=== PATIENT | female | born 1945 | race Caucasian/White ===

== ENCOUNTER 2023-03-21 11:53 | Emergency (ER) | payer OTHER, SELFPAY ==
[2023-03-21 12:02] VITALS: BP 125/57; PULSE 81; RESP 14; TEMP 37.2; O2SAT 98
--- NOTE | 2023-03-21 12:16 | ED.URI ---
HPI - URI/Sore Throat General Chief Complaint: Upper Respiratory Infection Stated Complaint: Sore Throat Time Seen by Provider: 03/21/23 12:17 Source: patient, RN notes reviewed and old records reviewed Mode of arrival: ambulatory Limitations: no limitations History of Present Illness HPI Narrative: 77-year-old female presents with postnasal drip, coughing phlegm and a sore throat since mulching leaves yesterday. Denies any fevers. No chest pain. No coughing. Reports that she does have a runny nose Has a history of allergies. Onset (ago): day(s) (1) Related Data Home Medications Medication Instructions Recorded Confirmed alendronate 70 mg tablet 70 mg PO DIRECTED 03/21/23 03/21/23 zolpidem 5 mg tablet 5 mg PO HS PRN Insomnia 03/21/23 03/21/23 Allergies Allergy/AdvReac Type Severity Reaction Status Date / Time levofloxacin Allergy Mild Other Verified 03/21/23 12:24 Sulfa (Sulfonamide Allergy Mild Other Verified 03/21/23 12:24 Antibiotics) AMOXICILLIN TRIHYDRATE Allergy Unknown DIARRHEA Uncoded 03/21/23 12:24 MONTELUKAST SODIUM Allergy Unknown SHAKES Uncoded 03/21/23 12:24 Review of Systems Review of Systems: All systems reviewed & are unremarkable except as noted in HPI and below Constitutional: Constitutional: Reports no additional constitutional complaints Eyes: Eyes: Reports no additional eye complaints ENT: Reports as per HPI and Reports sore throat Cardiovascular: Cardiovascular: Reports no additional cardiovascular complaints, Denies chest pain and Denies dyspnea Respiratory: Respiratory: Reports no additional respiratory complaints, Denies chest congestion, Denies cough and Denies dyspnea Gastrointestinal: Gastrointestinal: Reports no additional gastrointestinal complaints, Denies abdominal pain, Denies nausea and Denies vomiting Musculoskeletal: Musculoskeletal: Reports no additional musculoskeletal complaints Integumentary/Breasts: Skin/Breast: Reports system reviewed and no additional complaints, except as docu Neurologic: Reports system reviewed and no additional complaints, except as documented Psychiatric: Psychiatric: Reports no additional psychiatric complaints Allergic/Immunologic: Allergic/Immunologic: Reports no additional allergic/immunologic complaints [facility] Past Medical History Medical History (Updated 03/21/23 @ 19:05 by Jocelin Waters APRN) Osteoporosis Comments At the time of my signature, I reviewed and agree with the nursing past medical, surgical, social, and family history. There is no relevant family history pertinent to the patient complaint. Exam Const: General: cooperative, healthy appearing, comfortable, no acute distress, well developed, alert and well nourished Nutritional Appearance: well nourished Orientation/consciousness: patient oriented x3 Limitations: no limitations HENMT: Head: normal to inspection Ears: hearing grossly normal bilaterally, external ears normal, TM's normal bilaterally, EAC's normal, mastoids normal and no periauricular adenopathy Face/Nose/Sinus: Normal external nose present, Normal nares present, Normal nasal mucous membranes and turbinates present, normal facial exam and face symmetric Face and sinus: normal facial exam and face symmetric Mouth: Yes Normal oral and palatal mucosa present, Yes lip normal and Yes moist mucous membranes Throat: posterior oropharynx normal, tonsils normal, uvula midline and postnasal drainage Eyes: General: appearance normal, both eyes and all related structures Alignment and Position: alignment normal Periorbital: periorbital findings normal Pupils: Equal, round and reactive pupils present EOM: EOMs intact bilaterally Neck: Neck: normal visual inspection, full ROM, no lymphadenopathy and no meningeal signs Chest: Chest palpation & inspection: normal inspection of the chest Resp: Effort & Inspection: normal respiratory effort and able to speak in complete sentences Auscultation: clear to aus
== END 2023-03-21 12:51 | disposition home or self-care (01) ==
PROVIDERS: Emergency Provider Nurse Practitioner; PCP Family Medicine
DX: J02.9 Acute pharyngitis, unspecified (principal); R09.82 Postnasal drip; M81.0 Age-related osteoporosis without current pathological fracture
CPT/HCPCS: 87081; 87880; 99213; G0463

== ENCOUNTER 2023-08-11 12:06 | Emergency (ER) | payer OTHER, SELFPAY ==
[2023-08-11 12:28] VITALS: BP 142/60; PULSE 89; RESP 16; TEMP 37.2; O2SAT 98
--- NOTE | 2023-08-11 12:36 | ED.EAR ---
HPI - Ear Problem General Chief complaint: Ear Stated complaint: right ear decreased hearing Time Seen by Provider: 08/11/23 12:36 Source: patient Mode of arrival: ambulatory Limitations: no limitations History of Present Illness HPI Narrative: 77-year-old female presents with decreased hearing to bilateral ears, worse to right ear. No pain. All systems reviewed and negative except as noted above. Related Data Home Medications Medication Instructions Recorded Confirmed alendronate 70 mg tablet 70 mg PO DIRECTED 03/21/23 08/11/23 zolpidem 5 mg tablet 5 mg PO HS PRN Insomnia 03/21/23 08/11/23 Allergies Allergy/AdvReac Type Severity Reaction Status Date / Time levofloxacin Allergy Mild Other Verified 08/11/23 12:19 Sulfa (Sulfonamide Allergy Mild Other Verified 08/11/23 12:19 Antibiotics) AMOXICILLIN TRIHYDRATE Allergy Mild DIARRHEA Uncoded 08/11/23 12:19 MONTELUKAST SODIUM Allergy Mild SHAKES Uncoded 08/11/23 12:19 Review of Systems Review of Systems: CONSTITUTIONAL: Denies fever, chills, or sweats. EYES: Denies visual changes, redness, or discharge. ENT: Denies rhinorrhea, congestion, sore throat . reports decreased hearing, worse to right ear. CARDIOVASCULAR: Denies chest pain, palpitations, or edema. RESPIRATORY: Denies cough or dyspnea. GASTROINTESTINAL: Denies abdominal pain, nausea, vomiting, or diarrhea. GENITOURINARY: Denies dysuria or hematuria. SKIN: Denies rash or itching. MUSCULOSKELETAL: Denies back pain, joint pain, or myalgia. NEUROLOGIC: Denies headache, numbness, or weakness. PSYCHIATRIC: Denies anxiety or depression. All other systems reviewed are negative, except as documented in HPI. [facility] Past Medical History Medical History (Updated 08/11/23 @ 12:45 by Kimberly Simental NP) Osteoporosis Comments At time of signature, agree with nursing past medical, surgical, social and family history. There is no relevant family history pertinent to the presenting complaint. Exam Narrative: GENERAL: This is a well-nourished, well-developed patient, in no apparent distress. HEAD: normocephalic, atraumatic. EYES: PERRL. Sclera clear/white. Vision is grossly intact. EARS: External ears normal, Cerumen to bilateral ear canals, after irrigation TMs normal without perforation. Hearing grossly intact. NOSE: External nose normal NECK: Neck supple, non-tender without lymphadenopathy, masses or thyromegaly. CARDIOVASCULAR: Regular rate and rhythm without murmurs, gallops, or rubs. RESPIRATORY: Clear to auscultation. Breath sounds equal bilaterally. No wheezes, rales, or rhonchi. SKIN: warm, Dry, intact with no suspicious lesions or rash, good texture and turgor. NEURO: awake, alert, and oriented to person, place and time. There were no obvious focal neurologic abnormalities. EXTREMITIES: No joint tenderness, effusion, or edema noted. Course Course Level of Care: Express Care Visit Vital Signs Vital signs: Vital Signs Temperature 37.2 C 08/11/23 12:28 Pulse Rate 89 08/11/23 12:28 Respiratory Rate 16 08/11/23 12:28 Blood Pressure 142/60 H 08/11/23 12:28 Pulse Oximetry 98 08/11/23 12:28 Oxygen Delivery Room Air 08/11/23 12:28 Temperature 37.2 C 08/11/23 12:28 Pulse Rate 89 08/11/23 12:28 Respiratory Rate 16 08/11/23 12:28 Blood Pressure 142/60 H 08/11/23 12:28 Pulse Oximetry 98 08/11/23 12:28 Oxygen Delivery Room Air 08/11/23 12:28 reviewed Procedures Ear Wax Removal Both Ears: Ear Wax Removal Date: 08/11/23 Ear Wax Removal Time: 12:30 Cerumenolytic Used: other ( warm water) Results: Re-examined: cerumen removed completely TM Examination: TM(s) intact, normal appearance Ear Canal Exam: atraumatic Patient Tolerated Procedure: well Complications: no problems Technique: ear canal irrigated Medical Decision Making MDM Narrative Medical decision making narrative:
== END 2023-08-11 12:47 | disposition home or self-care (01) ==
PROVIDERS: Emergency Provider Nurse Practitioner Family; PCP Family Medicine
DX: H61.23 Impacted cerumen, bilateral (principal); M81.0 Age-related osteoporosis without current pathological fracture
CPT/HCPCS: 69209; 99212; G0463

== ENCOUNTER 2023-11-01 15:56 | Emergency (ER) | payer OTHER, SELFPAY ==
[2023-11-01 16:11] VITALS: BP 134/50; PULSE 64; RESP 16; TEMP 37.1; O2SAT 97
--- NOTE | 2023-11-01 16:30 | ED.FEMALEGU ---
HPI - Female Genitourinary General Chief complaint: Urogenital-Female Stated complaint: Urinary Problems Time Seen by Provider: 11/01/23 16:21 Source: patient and RN notes reviewed Mode of arrival: ambulatory Limitations: no limitations History of Present Illness HPI Narrative: Patient presents today with a 2 day history of urgency, frequency, dysuria, and dribbling of urine. She has been taking cranberry pills for symptoms. Denies abdominal pain, hematuria. States that due to drug allergies, she is only able to take Cipro for UTI. Reports allergies to Levaquin, Amoxicillin, and Sulfa. Patient also reports possible shingles to her low back that were noted a few days ago. She has been taking Benadryl for this which has been helping. States she cannot receive shingles vaccine due to allergy. Related Data Home Medications Medication Instructions Recorded Confirmed alendronate 70 mg tablet 70 mg PO DIRECTED 03/21/23 11/01/23 lidocaine 5 % topical patch 1 patch topical BID 11/01/23 11/01/23 Allergies Allergy/AdvReac Type Severity Reaction Status Date / Time levofloxacin Allergy Mild Hives Verified 11/01/23 16:19 Sulfa (Sulfonamide Allergy Mild Hives Verified 11/01/23 16:19 Antibiotics) AMOXICILLIN TRIHYDRATE Allergy Mild Hives Uncoded 11/01/23 16:19 MONTELUKAST SODIUM Allergy Mild SHAKES Uncoded 11/01/23 16:19 Review of Systems Review of Systems: CONSTITUTIONAL: Denies body aches, fever, chills, or sweats. EYES: Denies visual changes, redness, or discharge. ENT: Denies rhinorrhea, congestion, sore throat, or otalgia. CARDIOVASCULAR: Denies chest pain, palpitations, or edema. RESPIRATORY: Denies cough or dyspnea. GASTROINTESTINAL: Denies abdominal pain, nausea, vomiting, or diarrhea. GENITOURINARY: + urgency, frequency, dysuria SKIN: + rash MUSCULOSKELETAL: Denies back pain, joint pain, or myalgia. NEUROLOGIC: Denies headache, numbness, tingling, or weakness. PSYCH: Denies depression or anxiety. [facility] Past Medical History Medical History Osteoporosis Comments At time of signature, I have reviewed and agree with nursing past medical, surgical, social and family history unless otherwise noted. Please see nursing chart for further information. There is no relevant family history pertinent to the presenting complaint Exam Narrative: GENERAL: Well-appearing, well-nourished, and in no acute distress. HEAD: Normocephalic, atraumatic. EYES: EOMI. No redness or drainage. Conjunctivae normal. ENT: Mucous membranes pink and moist. NECK: Normal AROM. CHEST: No respiratory distress. Clear to auscultation. HEART: Regular rate and rhythm. No murmur appreciated. Normal peripheral pulses. ABDOMEN: Soft, nontender, nondistended, normal active bowel sounds. EXTREMITIES: Normal range of motion. No edema. SKIN: Warm, dry. Capillary refill normal. Normal skin turgor. Cluster of tiny vesicles on an erythematous base to the left low back almost at midline. NEURO: No focal deficits. Alert and oriented x3. Gait steady. PSYCH: Normal affect. No signs of depression or anxiety. Course Course Level of Care: Express Care Visit Vital Signs Vital signs: Vital Signs Temperature 98.8 F 11/01/23 16:11 Pulse Rate 64 11/01/23 16:11 Respiratory Rate 16 11/01/23 16:11 Blood Pressure 134/50 L 11/01/23 16:11 Pulse Oximetry 97 11/01/23 16:11 Oxygen Delivery Room Air 11/01/23 16:11 Temperature 98.8 F 11/01/23 16:11 Pulse Rate 64 11/01/23 16:11 Respiratory Rate 16 11/01/23 16:11 Blood Pressure 134/50 L 11/01/23 16:11 Pulse Oximetry 97 11/01/23 16:11 Oxygen Delivery Room Air 11/01/23 16:11 Reviewed MDM - Female Genitourinary MDM Narrative Medical decision making narrative: Urinalysis shows positive leukocyte esterase. Paring this with patient's symptoms, will go ahead and treat her for presumed UTI with Cipro.
== END 2023-11-01 16:40 | disposition home or self-care (01) ==
PROVIDERS: Emergency Provider Nurse Practitioner
DX: N30.00 Acute cystitis without hematuria (principal); B02.9 Zoster without complications; M85.80 Other specified disorders of bone density and structure, unspecified site
CPT/HCPCS: 81003; 87086; 99213; G0463

== ENCOUNTER 2024-10-07 15:09 | Emergency (ER) | payer OTHER, SELFPAY ==
--- NOTE | ~2024-10-07 | XR_ITS ---
XR abdomen/kub 1V 10/07/2024 15:59 INDICATION: Right rib and flank pain TECHNIQUE: KUB COMPARISON: None FINDINGS: Bowel gas pattern is normal. Large amount of retained fecal material throughout the colon. There is no evidence of free air, mass, organomegaly, ascites or obstruction. No abnormal calculi ar e seen. The bones appear intact. There are cholecystectomy clips. Moderate lumbar spondylosis with c ompression deformities of multiple lumbar vertebra, most likely chronic. IMPRESSION: 1: No acute abdominal abnormality identified. Reviewed, dictated and finalized at location A.
--- NOTE | ~2024-10-07 | XR_ITS ---
[XR ribs RT 2V ] INDICATION: Right rib pain TECHNIQUE: Frontal projection of the upper right ribs, frontal projection of the lower right ribs, ob lique projection of all the right ribs, frontal inspiratory chest x-ray for interpretation. FINDINGS: There are no displaced rib fractures identified. 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 There are no soft tissue abnormality seen. The lungs are clear. There are michelle cystectomy clips. IMPRESSION: 1:No acute displaced rib fractures. Reviewed, dictated and finalized at location A.
[2024-10-07 15:19] VITALS: BP 138/63; PULSE 69; RESP 16; TEMP 37.7; O2SAT 95
--- NOTE | 2024-10-07 15:32 | ED_ITS ---
HPI - Back Pain/Injury General Chief Complaint: Back Pain/Injury Stated Complaint: Back Pain Time Seen by Provider: 10/07/24 15:25 Source: patient Mode of arrival: ambulatory Limitations: no limitations History of Present Illness HPI Narrative: Patti is a 78-year-old female patient presenting to the clinic today with complaints of right thoracic back/flank pain. She reports symptoms started 4 days ago. Reports she has been mowing the lawn and lifting up a vaccum into her car prior to her symptoms but did not have any injury. States pains comes and goes and it can become intense. States sometimes when she is standing she feels as though it may be spasming. No history kidney stones in the past. Denies any shortness of breath or chest pain. No fevers, chills, or body aches. Denies any urinary symptoms. Denies any abdominal pain. Related Data Home Medications ?Medication ?Instructions ?Recorded ?Confirmed ?Last Taken ?Type alendronate 70 mg tablet 70 mg PO DIRECTED 03/21/23 11/01/23 Unknown History Allergies Allergy/AdvReac Type Severity Reaction Status Date / Time levofloxacin Allergy Mild Hives Verified 10/07/24 15:41 Sulfa (Sulfonamide Allergy Mild Hives Verified 10/07/24 15:41 Antibiotics) AMOXICILLIN TRIHYDRATE Allergy Mild Hives Uncoded 10/07/24 15:41 MONTELUKAST SODIUM Allergy Mild SHAKES Uncoded 10/07/24 15:41 Review of Systems Review of Systems: Pertinent positives per HPI. Patient denies any fever, chills, rash, headache, visual changes, dizziness, cough, runny nose, sore throat, shortness of breath, chest pain, palpitations, nausea, vomiting, diarrhea, constipation, abdominal pain, or any urinary issues. PENDING SALE TO [facility] Past Medical History Medical History Osteoporosis Comments At the time of my signature, I reviewed and agree with the nursing past medical, surgical, social, and family history. There is no relevant family history pertinent to the patient complaint. Exam Narrative: General: Well-developed, well nourished, in no apparent distress. Head: Normocephalic, atraumatic. Chest wall: Even rise and fall of the chest wall with respirations, no rash, bruising, or swelling noted, tenderness to palpation over the right posterior lower rib Cardio: Regular rate and rhythm, s1 and s2 normal, no murmur appreciated. Resp: Clear to auscultation bilaterally, no rhonchi, rales, wheezing or rubs. Abdomen: Soft, pliable, bowel sounds present in all quadrants, non-tender to palpation, no organomegly, positive for right CVAT tenderness. Course Course Emergency Course: Portions of this record may have been created with voice recognition software. Level of Care: Express Care Visit Vital Signs Vital signs: Vital Signs Temperature 37.7 C H 10/07/24 15:19 Pulse Rate 69 10/07/24 15:19 Respiratory Rate 16 10/07/24 15:19 Blood Pressure 138/63 10/07/24 15:19 Pulse Oximetry 95 10/07/24 15:19 Oxygen Delivery Room Air 10/07/24 15:19 Temperature 37.7 C H 10/07/24 15:19 Pulse Rate 69 10/07/24 15:19 Respiratory Rate 16 10/07/24 15:19 Blood Pressure 138/63 10/07/24 15:19 Pulse Oximetry 95 10/07/24 15:19 Oxygen Delivery Room Air 10/07/24 15:19 Vital signs reviewed MDM - Back Pain/Injury MDM Narrative Medical decision making narrative: At the time of visit patient is resting comfortably on the exam table. Patient appears to be nontoxic. Labs: Urinalysis negative for any sign of infection, blood, protein Diagnostics: Right rib x-ray and KUB x-rays were performed. Right rib x-ray was negative for any sign of fracture, malalignment, or pneumothorax. KUB x- rays negative for any acute abnormality of the abdomen, shows a large amount of stool in the colon Plan: I suspect patient likely has a muscle strain/flank pain. No obvious sign of rash to think that she has shingles. Urine shows no sign of infection or blood. Will send in prescription for naproxen, Robaxin, and MiraLax. Supportive measures were discussed with the patient and they voiced understanding discharge instructions and agrees to treatment plan. Return precautions reviewed Differential Diagnosis Differential diagnosis: Likely strain of lumbar region, renal colic, pyelonephritis (Constipation), thoracic back pain and other (Rib fracture, rib contusion, shingles, muscle strain) Lab Data Labs: Lab Results 10/07/24 Range/Units 15:29 POC Urine Color Yellow POC Urine Clarity Clear POC Urine pH 7.0 POC Ur Specif [place] 1.010 POC Urine Protein Negative (Negative) POC Ur Glucose (UA) Negative (Negative) POC Urine Ketones Negative (Negative) POC Urine Blood Negative (Negative) POC Urine Nitrite Negative (Negative) POC Urine Bilirubin Negative (Negative) POC Urine Urobilinogen 0.2 POC U Leukocyte Esteras Negative (Negative) Imaging Data Radiologist's impression: ITS Impressions Ribs X-Ray 10/07/24 16:03 IMPRESSION: 1:No acute displaced rib fractures. Abdomen X-Ray 10/07/24 16:05 IMPRESSION: 1: No acute abdominal abnormality identified. Discharge Plan Discharge Clinical Impression: Rib pain on right side, Right flank pain Constipation Qualifiers: Constipation type: unspecified constipation type Qualified Code(s): K59.00 - Constipation, unspecified Patient Disposition: Home Condition: Stable Instructions: Antibiotic Form, Constipation (ED), Flank Pain (ED) Additional Instructions: X-rays are negative for any sign of fracture or malalignment of the right ribs X-ray of the abdomen is negative for any acute abnormality of the abdomen-shows large amount of stool in the colon Urinalysis is negative for any blood, bacteria, nitrates, or ketones. Take any prescription medication only as prescribed-naproxen, methocarbamol, and MiraLax Be mindful of sedation precautions given to you if taking a muscle relaxer. May use heat or ice to the affected area Consider massage or chiropractor adjustment if this was discussed with provider May use blue emu, lidocaine patches, or asper cream to affected area- do not apply heat or ice directly over cream- can cause burn. Complete appropriate back stretching exercises. Follow up with your PCP in 3-5 days if symptom persist. Patient Language: Fijian Prescriptions: New naproxen 500 mg tablet 500 mg PO BID PRN (Reason: pain) 7 Days Qty: 14 0RF methocarbamol 750 mg tablet 750 mg PO TID PRN (Reason: muscle pain) 7 Days Qty: 21 0RF polyethylene glycol 3350 [Miralax] 17 gram/dose powder 17 g PO DAILY 7 Days Qty: 119 0RF No Action alendronate 70 mg tablet 70 mg PO DIRECTED Follow-up/Referrals: Gayla,Gokul Hale DO [Primary Care Provider] - Time of Disposition: 16:18 Quality NIHSS Nursing Documentation ED NIHSS nursing documentation: reviewed/agree
[2024-10-07 15:37] LABS: EDUAAPPEAR Clear; EDUABILI Negative (Negative); EDUABLOOD Negative (Negative); EDUACOLOR1 Yellow; EDUAGLUCOSE Negative (Negative); EDUAKETONE Negative (Negative); EDUALEUKO Negative (Negative); EDUANITRATE Negative (Negative); EDUAPROTEIN Negative (Negative); EDUAUROBILI 0.2
== END 2024-10-07 16:31 | disposition home or self-care (01) ==
PROVIDERS: Emergency Provider Nurse Practitioner Family; PCP Family Medicine
DX: R07.81 Pleurodynia (principal); R10.9 Unspecified abdominal pain; K59.00 Constipation, unspecified; M81.0 Age-related osteoporosis without current pathological fracture
CPT/HCPCS: 71100; 74018; 81003; 99213; G0463

== ENCOUNTER 2024-12-13 12:23 | Emergency (ER) | payer OTHER, SELFPAY ==
[2024-12-13 12:41] VITALS: BP 124/65; PULSE 78; RESP 16; TEMP 36.9; O2SAT 100
--- NOTE | 2024-12-13 12:41 | ED_ITS ---
HPI - Female Genitourinary General Chief complaint: Urogenital-Female Stated complaint: urinary irritation Source: patient, RN notes reviewed and old records reviewed Mode of arrival: ambulatory Limitations: no limitations History of Present Illness HPI Narrative: 78-year-old female presents to the [facility] with concerns for frequency and urgency well urinating since Monday, 2 days. Denies any pain. Denies any pressure. Denies any abdominal pain. No CVA tenderness. Denies fevers. Onset (ago): day(s) (2) Related Data Home Medications ?Medication ?Instructions ?Recorded ?Confirmed ?Last Taken ?Type alendronate 70 mg tablet 70 mg PO DIRECTED 03/21/23 11/01/23 Unknown History Allergies Allergy/AdvReac Type Severity Reaction Status Date / Time levofloxacin Allergy Mild Hives Verified 12/13/24 12:39 Sulfa (Sulfonamide Allergy Mild Hives Verified 12/13/24 12:39 Antibiotics) AMOXICILLIN TRIHYDRATE Allergy Mild Hives Uncoded 12/13/24 12:39 MONTEL[place]AST SODIUM AdvReac Mild SHAKES Uncoded 12/13/24 12:39 Review of Systems Review of Systems: All systems reviewed & are unremarkable except as noted in HPI and below Constitutional: Constitutional: Reports no additional constitutional complaints Cardiovascular: Cardiovascular: Reports no additional cardiovascular complaints, Denies chest pain and Denies dyspnea Respiratory: Respiratory: Reports no additional respiratory complaints, Denies chest congestion, Denies cough and Denies dyspnea Gastrointestinal: Gastrointestinal: Reports no additional gastrointestinal complaints Genitourinary: Genitourinary: Reports as per HPI Musculoskeletal: Musculoskeletal: Reports no additional musculoskeletal complaints Integumentary/Breasts: Skin/Breast: Reports system reviewed and no additional complaints, except as docu PMFSH Past Medical History Medical History Osteoporosis Comments At the time of my signature, I reviewed and agree with the nursing past medical, surgical, social, and family history. There is no relevant family history pertinent to the patient complaint. Exam Const: General: cooperative, healthy appearing, comfortable, no acute distress, well developed, alert and well nourished Nutritional Appearance: well nourished Orientation/consciousness: patient oriented x3 Limitations: no limitations HENMT: Head: normal to inspection Eyes: General: appearance normal, both eyes and all related structures Alignment and Position: alignment normal Neck: Neck: normal visual inspection, full ROM, no lymphadenopathy and no meningeal signs Chest: Chest palpation & inspection: normal inspection of the chest Resp: Effort & Inspection: normal respiratory effort and able to speak in complete sentences Cardio: Rate: regular rate GI: GI Palp: No abdominal tenderness : General: Yes no CVA tenderness Skin: General skin exam: normal color and no rashes or lesions noted Neuro: General: patient oriented x3, gait normal, moves all extremities and no meningeal signs Cognition (Neuro): normal cognition Speech: normal speech Gait exam (Neuro): Normal gait present Extrem: General: normal to inspection, full ROM, capillary refill normal and normal gait Psych: Appearance: grossly normal and well kempt Mental Status: mental status grossly normal Speech and movement: Normal speech and movement present and Clear speech present Affect: normal affect Attitude: cooperative Course Course Level of Care: Express [facility] Visit Vital Signs Vital signs: Vital Signs Temperature 98.5 F 12/13/24 12:41 Pulse Rate 78 12/13/24 12:41 Respiratory Rate 16 12/13/24 12:41 Blood Pressure 124/65 12/13/24 12:41 Pulse Oximetry 100 12/13/24 12:41 Oxygen Delivery Room Air 12/13/24 12:41 Temperature 98.5 F 12/13/24 12:41 Pulse Rate 78 12/13/24 12:41 Respiratory Rate 16 12/13/24 12:41 Blood Pressure 124/65 12/13/24 12:41 Pulse Oximetry 100 12/13/24 12:41 Oxygen Delivery Room Air 12/13/24 12:41 Reviewed MDM - Female Genitourinary MDM Narrative Medical decision making narrative: Patient sitting in exam room. Concerns for UTI due to frequency and urgency for 2 days. Patient's urine does not not consistent with UTI. Will send culture however Patient appropriate for outpatient treatment with close follow-up Discharge instructions reviewed with patient, as well as provided in writing per nursing staff. The instructions also include specific and strict return/GO TO THE ER as well as f/u information. All questions have been answered, and the patient deny any further questions with discharge and discharge plan. Some parts of this dictation were generated by voice recognition software and may contain typographical and/or grammatical inaccuracies. Differential Diagnosis Differential diagnosis: Likely urinary tract infection, cystitis and other (Dysuria) Lab Data Labs: Lab Results 12/13/24 Range/Units 12:35 POC Urine Color Yellow POC Urine Clarity Clear POC Urine pH 6.5 POC Ur Specif [place] 1.010 POC Urine Protein Negative (Negative) POC Ur Glucose (UA) Negative (Negative) POC Urine Ketones Negative (Negative) POC Urine Blood Trace (Negative) POC Urine Nitrite Negative (Negative) POC Urine Bilirubin Negative (Negative) POC Urine Urobilinogen 0.2 POC U Leukocyte Esteras Trace (Negative) Reviewed Critical Care Time Critical Care Time Critical Care Time: No Discharge Plan Discharge Clinical Impression: Dysuria, Urinary frequency Patient Disposition: Home Condition: Stable Instructions: Antibiotic Form, Urinary Urgency and Frequency (DC) Additional Instructions: Increased water intake Take Tylenol as needed for pain Today your urine dip did not show a UTI. Your urine will be sent to our lab for a culture. If at that time a bacteria grows in antibiotic will be called in for you Follow-up with primary care For new or worsening symptoms go directly to the emergency room Patient Language: Macedonian Prescriptions: No Action alendronate 70 mg tablet 70 mg PO DIRECTED Follow-up/Referrals: Gayla,Gokul Hale DO [Primary Care Provider] - 2 Weeks ([facility] follow- up) Time of Disposition: 13:03
[2024-12-13 12:44] LABS: EDUAAPPEAR Clear; EDUABILI Negative (Negative); EDUABLOOD Trace (Negative); EDUACOLOR1 Yellow; EDUAGLUCOSE Negative (Negative); EDUAKETONE Negative (Negative); EDUALEUKO Trace (Negative); EDUANITRATE Negative (Negative); EDUAPH 6.5; EDUAPROTEIN Negative (Negative); EDUASPGRAVITY 1.010; EDUAUROBILI 0.2
== END 2024-12-13 13:09 | disposition home or self-care (01) ==
PROVIDERS: Emergency Provider Nurse Practitioner; PCP Family Medicine
DX: R30.0 Dysuria (principal); R35.0 Frequency of micturition; M81.0 Age-related osteoporosis without current pathological fracture
CPT/HCPCS: 81003; 87086; 99213; G0463